=== PATIENT | female | born 1985 | race African-American/Black ===

== ENCOUNTER 2016-12-19 01:13 | Emergency (ER) | payer OTHER ==
[~2016-12-19] VITALS: Ht 165.1 cm; Wt 70.0 kg
--- NOTE | 2016-12-19 01:45 | PD ---
HPI Chief Complaint: BA Time Seen by Provider: 01:30 Travel History International Travel<30 days: No Contact w/Intl Traveler<30days: No Traveled to known affect area: No History of Present Illness HPI Examined in the presence of female nurse at all times. 31-year-old female who reports a history of bipolar disorder and schizophrenia, noncompliant with medications, presents under Blakely act initiated by the Police Department. The patient reports that she is from [place], she came to [facility] yesterday to "visit a [place] who I was trying to get with." She reports that it didn't work out and so she called 911 and said that she was suicidal. She reports that she has been suicidal for 20 years. She admits to drinking some vodka today. Denies any illicit drug use. She has no medical complaints at this time. [facility] Social History Alcohol Use: Yes Tobacco Use: Yes Allergies-Medications (Allergen,Severity, Reaction): Coded Allergies: No Known Allergies (Unverified , 12/19/16) Reported Meds & Prescriptions Reported Meds & Active Scripts Active No Active Prescriptions or Reported Medications Review of Systems Except as stated in HPI: all other systems reviewed are Neg Physical Exam Narrative GENERAL: Well-developed well-nourished female who is intoxicated on examination. SKIN: Warm and dry. HEAD: Atraumatic. Normocephalic. EYES: Pupils equal and round. No scleral icterus. No injection or drainage. ENT: No nasal bleeding or discharge. Mucous membranes pink and moist. NECK: Trachea midline. No JVD. CARDIOVASCULAR: Regular rate and rhythm. No murmur appreciated. RESPIRATORY: No accessory muscle use. Clear to auscultation. Breath sounds equal bilaterally. GASTROINTESTINAL: Abdomen soft, non-tender, nondistended. Hepatic and splenic margins not palpable. MUSCULOSKELETAL: No obvious deformities. No clubbing. No cyanosis. No edema. NEUROLOGICAL: Awake and alert. No obvious cranial nerve deficits. Motor grossly within normal limits. Intoxicated. PSYCHIATRIC: Intoxicated, limited insight and judgment. Data Data Last Documented VS Vital Signs Date Time Temp Pulse Resp B/P Pulse Ox O2 Delivery O2 Flow Rate FiO2 12/19/16 01:55 98.2 98 20 107/58 96 Orders Complete Blood Count With Diff (12/19/16 01:42) Comprehensive Metabolic Panel (12/19/16 01:42) Ed Urine Pregnancytest Poc (12/19/16 01:42) Psych Screen (12/19/16 01:42) Alcohol (Ethanol) (12/19/16 01:42) Labs Laboratory Tests Test 12/19/16 01:50 White Blood Count 11.2 TH/MM3 Red Blood Count 5.28 MIL/MM3 Hemoglobin 13.1 GM/DL Hematocrit 42.1 % Mean Corpuscular Volume 79.8 FL Mean Corpuscular Hemoglobin 24.9 PG Mean Corpuscular Hemoglobin 31.2 % Concent Red Cell Distribution Width 16.7 % Platelet Count 260 TH/MM3 Mean Platelet Volume 9.4 FL Neutrophils (%) (Auto) 60.8 % Lymphocytes (%) (Auto) 33.0 % Monocytes (%) (Auto) 4.4 % Eosinophils (%) (Auto) 1.1 % Basophils (%) (Auto) 0.7 % Neutrophils # (Auto) 6.8 TH/MM3 Lymphocytes # (Auto) 3.7 TH/MM3 Monocytes # (Auto) 0.5 TH/MM3 Eosinophils # (Auto) 0.1 TH/MM3 Basophils # (Auto) 0.1 TH/MM3 CBC Comment DIFF FINAL Differential Comment Sodium Level 140 MEQ/L Potassium Level 3.5 MEQ/L Chloride Level 106 MEQ/L Carbon Dioxide Level 21.7 MEQ/L Anion Gap 12 MEQ/L Blood Urea Nitrogen 11 MG/DL Creatinine 0.92 MG/DL Estimat Glomerular Filtration 72 ML/MIN Rate Random Glucose 68 MG/DL Calcium Level 8.6 MG/DL Total Bilirubin 0.3 MG/DL Aspartate Amino Transf 27 U/L (AST/SGOT) Alanine Aminotransferase 22 U/L (ALT/SGPT) Alkaline Phosphatase 65 U/L Total Protein 8.2 GM/DL Albumin 4.0 GM/DL Ethyl Alcohol Level 252 MG/DL [facility] Medical Decision Making Medical Screen Exam Complete: Yes Emergency Medical Condition: Yes Medical Record Reviewed: Yes Differential Diagnosis Adjustment reaction, acute intoxication, substance induced mood disorder, bipolar disorder, schizophrenia Narrative Course 31-year-old female presents under Blakely act for evaluation of suicidal ideation. Mental health screening discussed with the patient. Psychiatric screen ordered. Alcohol level is 252. She is medically cleared for psychiatric disposition. Diagnosis Primary Impression: Medical clearance for psychiatric admission Scripts No Active Prescriptions or Reported Meds Ever Jones Dec 19, 2016 01:45
[2016-12-19 01:55] VITALS: BP 107/58; PULSE 98; RESP 20; TEMP 98.2; O2SAT 96
[2016-12-19 02:22] LABS: AUTOMATED NEUTROPHIL # 6.8 TH/MM3 (1.8-7.7); BASOPHIL # 0.1 TH/MM3 (0-0.2); BASOPHIL % 0.7 % (0.0-2.0); EOSINOPHIL # 0.1 TH/MM3 (0-0.4); EOSINOPHIL % 1.1 % (0.0-4.0); HEMATOCRIT 42.1 % (35.0-46.0); HEMO FLAGS DIFF FINAL; LYMPHOCYTE # 3.7 TH/MM3 (1.0-4.8); MEAN CELL VOLUME 79.8 FL (80.0-100.0); MEAN CORPUSCULAR HEMOGLOBIN 24.9 PG (27.0-34.0); MEAN CORPUSCULAR HGB CONC 31.2 % (32.0-36.0); MONO % 4.4 % (0.0-8.0); NEUT % 60.8 % (16.0-70.0); PLATELET COUNT 260 TH/MM3 (150-450); RED BLOOD COUNT 5.28 MIL/MM3 (4.00-5.30); RED CELL DISTRIBUTION WIDTH 16.7 % (11.6-17.2); WHITE BLOOD COUNT 11.2 TH/MM3 (4.0-11.0)
[2016-12-19 02:33] LABS: ALT (GPT) 22 U/L (10-53); ANION GAP 12 MEQ/L (5-15); AST (GOT) 27 U/L (15-37); BICARBONATE 21.7 MEQ/L (21.0-32.0); BLOOD UREA NITROGEN 11 MG/DL (7-18); CHLORIDE 106 MEQ/L (98-107); GLOMERULAR FILTRATION RATE 72 ML/MIN (>89); POTASSIUM 3.5 MEQ/L (3.5-5.1); SODIUM (NA) 140 MEQ/L (136-145)
[2016-12-19 02:36] LABS: ALKALINE PHOSPHATASE 65 U/L (45-117); TOTAL BILIRUBIN ADULT 0.3 MG/DL (0.2-1.0)
[2016-12-19] MEDS ORDERED: SERO25TA PO (04:09)
[2016-12-19] MEDS ORDERED: RISP1 PO (04:09)
[2016-12-19] MEDS ORDERED: FLUO-1 PO (04:09)
[2016-12-19 10:00] VITALS: BP 98/53; PULSE 61; RESP 18
--- NOTE | 2016-12-19 13:12 | PD ---
History of Present Illness Chief Complaint: Psychiatric Symptoms Time Seen by Provider: 13:00 Travel History International Travel<30 Days: No Contact w/Intl Traveler<30days: No Known affected area: No Legal Status Legal Status: Blakely Act Blakely Act Signed By: Edward Cote Blakely Act Comment: 12/19/2016 0100 History of Present Illness: History of Present Illness HPI 31-year-old female with a reported history of bipolar disorder and schizophrenia presents under Blakely act initiated by the Police Department. The report alleges that the patient advised central dispatch that she was suicidal .She informed the officer that she wanted to harm herself as well as others. She did not make any attempts at harming herself. As per ED documentation reviewed and included in this report; " The patient reports that she is from [place], she came to [facility] yesterday to "visit a [place] who I was trying to get with." She reports that it didn't work out and so she called 911 and said that she was suicidal. She reports that she has been suicidal for 20 years. She admits to drinking some vodka today. Denies any illicit drug use." She was monitored in [facility] and she presented no behavioral concerns and no suicidality. EMR is reviewed. No previous contact with [facility] psychiat[facility]. BAl on arrival was 252. She was sleeping but awakens with verbal que. She states " I need a place to go. I've been to different places like [facility] and [place]. I need to get back on my medication". She has not taken medication in over a year and does not remember the names of her last prescribed medication . She again reports that she " came here to get with a friend but it didn't work out". Patient in fact arrives to the hospital with several pieces of luggage. Her speech is clear and logical, normal rate. No yoselin or hypomania. No hallucinations. Patient with no suicidal or homicidal ideation but does report that she has felt suicidal for the past 20 years and endorses previous attempts by cutting herself as well as by taking pills in the past. In terms of substances she admits to drinking alcohol, smoking pot and taking mollies. PFSH Past Medical History Asthma: Yes Bipolar Disorder: Yes Depression: Yes Schizophrenia: Yes ?: Not Past Surgical History Other Surgery: Yes (JAW WIRED ) Psychiatric History Psychiatric History Hx Psychiatric Treatment: Patient with a hx of schizophrenia, depression and bipolar disorder. Not in treatment History of Inpatient Treatment: Yes Guns or firearms in home: No Social History Single female. Lives in [place] Hx Alcohol Use: Yes Hx Tobacco Use: Yes Hx Substance Use: Yes (1/2 ppd, cocaine, marijuana, 1 /2 gal. vodka) Substance Use Type: Alcohol, Marijuana, Nicotine/Cigarettes, Cocaine Hx of Substance Use Treatment: Yes Family Psychiatric History None reported Allergies-Medications (Allergen,Severity, Reaction): Coded Allergies: No Known Allergies (Unverified , 12/19/16) Reported Meds & Prescriptions Reported Meds & Active Scripts Active Reported Prozac (Fluoxetine HCl) 10 Mg Cap 10 Mg PO DAILY Seroquel (Quetiapine Fumarate) 25 Mg Tab 25 Mg PO BID Risperdal (Risperidone) 1 Mg Tab 1 Mg PO DAILY Review of Systems Except as stated in HPI: all other systems reviewed are Neg Exam Alert: Yes [place]: Person (ox4) Mood: Calm Affect: Appropriate Speech: Clear, Logical Eye Contact: Normal Memory Intact: Comment (No impairmetn) Hallucinations: Other (Negative) Delusions: No Suicidal: Ideation (Negative) Homicidal: Ideation (Negative) Insight/Judgement Poor. Not impaired. MDM Medical Decision Making Medical Record Reviewed: Yes Assessment/Plan 31-year-old female with a reported history of bipolar disorder and schizophrenia presents under Blakely act initiated by the Police Department. The report alleges that the patient advised central dispatch that she was suicidal .She informed the officer that she wanted to harm herself as well as others. She did not make any attempts at harming herself. Patient reported to ed provider that she called the police and told them she was suicidal because her plans to meet with someone did not work out. patient does not present any acute psychiatric symptoms while under our care. Apparently she malingered her symptoms in order to obtain retirement. Does not appear interested at this time in pursuing treatment but rather continues to request assistance with retirement. She does not meet BA criteria . She is calling her mother in [place] to arrange to be picked up. Discharge . Orders Complete Blood Count With Diff (12/19/16 01:42) Comprehensive Metabolic Panel (12/19/16 01:42) Ed Urine Pregnancytest Poc (12/19/16 01:42) Psych Screen (12/19/16 01:42) Alcohol (Ethanol) (12/19/16 01:42) Diet Regular Basic (12/19/16 Breakfast) Diet Regular Basic (12/19/16 Lunch) Results Vital Signs Date Time Temp Pulse Resp B/P Pulse Ox O2 Delivery O2 Flow Rate FiO2 12/19/16 10:00 61 18 98/53 Room Air 12/19/16 01:55 98.2 98 20 107/58 96 Laboratory Tests Test 12/19/16 01:50 White Blood Count 11.2 Red Blood Count 5.28 Hemoglobin 13.1 Hematocrit 42.1 Mean Corpuscular Volume 79.8 Mean Corpuscular Hemoglobin 24.9 Mean Corpuscular Hemoglobin 31.2 Concent Red Cell Distribution Width 16.7 Platelet Count 260 Mean Platelet Volume 9.4 Neutrophils (%) (Auto) 60.8 Lymphocytes (%) (Auto) 33.0 Monocytes (%) (Auto) 4.4 Eosinophils (%) (Auto) 1.1 Basophils (%) (Auto) 0.7 Neutrophils # (Auto) 6.8 Lymphocytes # (Auto) 3.7 Monocytes # (Auto) 0.5 Eosinophils # (Auto) 0.1 Basophils # (Auto) 0.1 CBC Comment DIFF FINAL Differential Comment Sodium Level 140 Potassium Level 3.5 Chloride Level 106 Carbon Dioxide Level 21.7 Anion Gap 12 Blood Urea Nitrogen 11 Creatinine 0.92 Estimat Glomerular Filtration 72 Rate Random Glucose 68 Calcium Level 8.6 Total Bilirubin 0.3 Aspartate Amino Transf 27 (AST/SGOT) Alanine Aminotransferase 22 (ALT/SGPT) Alkaline Phosphatase 65 Total Protein 8.2 Albumin 4.0 Ethyl Alcohol Level 252 Diagnosis Primary Impression: Substance induced mood disorder Additional Impression: Malingering Psychiatrically Cleared: Yes Med/ Other Pt Specific Info: No Meds Exist/No RX given Disposition: 01 DISCHARGE HOME Condition: Stable Problem Qualifiers Bisi Gutierrez Dec 19, 2016 13:12
[2016-12-19 13:22] VITALS: BP 98/53
== END 2016-12-19 13:51 | disposition home or self-care (01) ==
LOC: NEPJ 01:13
DX: Z02.89 Encounter for other administrative examinations (principal); F19.94 Other psychoactive substance use, unspecified with psychoactive substance-induced mood disorder; F20.9 Schizophrenia, unspecified; Z76.5 Malingerer [conscious simulation]; Z91.14 Patient's other noncompliance with medication regimen; F10.10 Alcohol abuse, uncomplicated; F17.210 Nicotine dependence, cigarettes, uncomplicated; J45.909 Unspecified asthma, uncomplicated
CPT/HCPCS: 80053; 80307; 85025; 99285